=== PATIENT | female | born 1980 | race Hispanic/Latino ===

== ENCOUNTER 2017-04-25 19:00 | Inpatient (IN) | payer OTHER ==
[2017-04-25 20:22] VITALS: BMI 33.2
[2017-04-25 21:45] LABS: BASO # 0.1 K/uL (0.0-0.2); BASO % 0.6 % (0.0-2.0); EOS # 0.2 K/uL (0.0-0.7); EOS % 1.8 % (0.0-4.0); HEMATOCRIT 33.5 % (34.0-47.0); LYMPH % 21.9 % (20.0-40.0); MEAN CELL VOLUME 87.3 fl (81.0-99.0); MEAN CORPUSCULAR HEMOGLOBIN 28.7 pg (27.0-31.0); MEAN CORPUSCULAR HGB CONC 32.9 g/dL (33.0-37.0); MEAN PLATELET VOLUME 6.6 fl (7.2-11.7); MONO # 0.7 K/uL (0.0-0.8); MONO % 7.9 % (0.0-10.0); NEUT # 6.2 K/uL (1.8-7.0); NEUT % 67.8 % (50.0-75.0); RED CELL DISTRIBUTION WIDTH 14.5 % (11.5-14.5); WHITE BLOOD COUNT 9.2 K/uL (4.8-10.8)
[2017-04-25 21:58] VITALS: O2SAT 100
[2017-04-26] MEDS ORDERED: Lidocaine 1% Inj (20ml) ONE (09:43)
[2017-04-26] MEDS ORDERED: Lactated Ringer's 1,000 ML IV ONE ×2 (10:30→17:25)
--- NOTE | 2017-04-26 10:38 | OBPN ---
Datetime: 04/26/2017 10:33 IP Progress Impression: Normal progression of labor IP Informed Consent Obtain: Vaginal Delivery IP Procedures: Sterile Speculum Exam IP Progress Plan: Continue present management Contraction Comments Provider: q 4-5 mins FHR - Baseline A Provider: 140 Presentation-Admit: Vertex IP Progress Note Comment: Patient examined, uncomfortable. Cervidil removed VE=2-3/50/-2 [id number] mod alexa, +accels, no decels TOCO= ctxning q 4-5 mins A/P 1. Patient uncomfortable, now 2-3cm. WIll continue induction with Cytotec 2. Patient would like EPidural for pain 3. CEFM and TOCO Vital Signs Provider: Reviewed; Within Normal Limits NICHD Accel Fetus A IP Provider: [id number] NICHD Variability Prov Fetus A: Moderate 6-25bpm Dilatation, Provider: 2-3 Effacement, Provider: 50 Station, Provider: -2 NICHD Decel Fetus A IP Provider: None Datetime: 04/26/2017 01:29 Gestation - Est Wks by US: 40.0 FHR Category Provider Fetus A: Category I
[2017-04-26] MEDS ORDERED: Fentanyl/Bupivacaine HCl 250 ML EPI ONE (11:15)
[2017-04-26] MEDS ORDERED: Bupivacaine HCl 0.25% PF (10 ml) Inj ONE ×2 (11:16→17:36)
[2017-04-26] MEDS: Lactated Ringer's 1,000 ML IV SCH ×2 (13:00→18:55)
[2017-04-26] MEDS ORDERED: EPINEPHrine 1 mg/ml (1:1000) Inj ONE (16:55)
[2017-04-26] MEDS ORDERED: Lidocaine 2% PF (10 ml) Amp ONE ×2 (16:55→17:14)
[2017-04-26] MEDS ORDERED: ePHEDrine 50 mg/ml Inj ONE (17:52)
[2017-04-26] MEDS ORDERED: Oxytocin 30 units/LR 500ML 30 U/500 ML BAG IV ONE (20:00)
--- NOTE | 2017-04-26 21:33 | OBPN ---
Datetime: 04/26/2017 21:26 IP Progress Impression: Normal progression of labor IP Informed Consent Obtain: Vaginal Delivery IP Procedures: Sterile Vag Exam IP Progress Plan: Continue present management Membranes, Provider: Ruptured Contraction Comments Provider: q 3-4 mins FHR - Baseline A Provider: 125 IP Progress Note Comment: Patient feeling increased pressure VE=9/100/0 [id number] mod alexa, +early decelerations, +accels TOCO=ctxning q 3-4 mins A/P 1. Continue augmentation with Pitocin. Patient now 9cm dilated 2. CEFM and TOCO 3. Re-evaluate as needed Vital Signs Provider: Reviewed; Within Normal Limits NICHD Accel Fetus A IP Provider: [id number] NICHD Variability Prov Fetus A: Moderate 6-25bpm Dilatation, Provider: 9 Effacement, Provider: 100 Station, Provider: 0 NICHD Decel Fetus A IP Provider: Early
[2017-04-26] MEDS ORDERED: Benzocaine/Menthol SPRAY TOP PRN (23:46)
[2017-04-26] MEDS ORDERED: Oxytocin 30 units/LR 500ML 30 U/500 ML BAG IV SCH (23:46)
[2017-04-26] MEDS ORDERED: Oxycodone/Acetaminophen 5/325 mg Tab PO PRN ×2 (23:46)
--- NOTE | 2017-04-26 23:46 | OBDS ---
DELIVERY PERSONNEL Delivery Doctor: Balaji Wang MD Anesthesiologist: Africa Wiseman MD MATERNAL INFORMATION Delivery Anesthesia: Epidural Provider Comments: of live male infant in [place] presentation with nuchal cord loose, easily reduc ed, followed by rest of infant, 7lbs 1oz, 9/9 followed by shoulders and rest of infant, mouth and nos e suctioned, cord clamped and cut, cord blood obtained, placenta delivered spontaneously, fundus firm , first degree repaired with a 2-0 Vicry rapide, [id number], pt tolerated procedure well LABOR SUMMARY EDC: 04/23/2017 00:00 No. Babies in Womb: 1 Labor Anesthesia: Epidural LABOR INFORMATION Reason for Induction: Postterm Onset of Labor: 04/26/2017 17:15 Cervical Ripening Agents: Cervidil; Cytotec @ Oxytocin: N/A Group B Beta Strep: Negative BABY A INFORMATION Born in Route : No PRESENTATION/POSITION BABY A Presentation: Cephalic INFORMATION BABY A Gestational Age at Delivery: 40.3 Gestational Status: Term
[2017-04-27] MEDS ORDERED: Benzocaine/Menthol SPRAY TOP PRN (00:17)
[2017-04-27] MEDS ORDERED: Oxycodone/Acetaminophen 5/325 mg Tab PO PRN ×2 (00:17)
[2017-04-27] MEDS ORDERED: Multivitamin With Minerals Tab PO SCH (09:00)
[2017-04-27 09:14] LABS: HEMATOCRIT 35.9 % (34.0-47.0); MEAN CELL VOLUME 87.2 fl (81.0-99.0); MEAN CORPUSCULAR HEMOGLOBIN 28.6 pg (27.0-31.0); MEAN CORPUSCULAR HGB CONC 32.8 g/dL (33.0-37.0); RED CELL DISTRIBUTION WIDTH 14.7 % (11.5-14.5)
[2017-04-27] MEDS: Multivitamin With Minerals Tab PO SCH (09:20)
[2017-04-27 09:25] LABS: WHITE BLOOD COUNT 20.6 K/uL (4.8-10.8)
--- NOTE | 2017-04-27 09:25 | OBPPN ---
Datetime: 04/27/2017 09:22 PP Pain Prov: Within normal limits PP Abdomen/Uterus Prov: Normal PP Lochia Prov: Normal PP Extremities Prov: Normal PP Impression Prov: Normal progression PP Plan Prov: Continue present management PP Progress Note Prov: PPD 1 s/p , doing well, breast feeding Continue current management Vital Signs Provider PP: Reviewed
[2017-04-28] MEDS: Multivitamin With Minerals Tab PO SCH (08:46)
--- NOTE | 2017-04-28 10:14 | OBDCSUM ---
Datetime: 04/28/2017 10:12 Discharged to, Provider: Home Follow up at, Provider: OB Disch Instr Activity: Normal activity Disch Instr Diet: Regular Discharge Instructions, Provider: Routine instructions given Discharge Diagnosis, Provider: Term Delivered Discharge Time: 04/28/2017 10:12 Follow up in weeks, Provider: 6 wks Disch Referrals: None Contraception discussed, Prov: Yes
--- NOTE | 2017-04-28 10:14 | OBPPN ---
Datetime: 04/28/2017 10:11 PP Pain Prov: Within normal limits PP Nausea Prov: Denies PP Flatus Prov: Yes PP Breasts Prov: Normal PP Heart Prov: Normal PP Lungs Prov: Normal PP Abdomen/Uterus Prov: Normal PP Lochia Prov: Normal PP Vulva/Perineum Prov: Normal PP CVA Tenderness Prov: Normal PP Extremities Prov: Normal PP Comments Phys Exam Prov: Fundus firm under umbilicus PP Impression Prov: Normal progression PP Plan Prov: Continue present management PP Progress Note Prov: Patient denies CP, no SOB, no N/V, tolerating PO diet, ambulating/voiding wel l, mild lochia, abdominal pain tolerable with meds A/P PPD #2 1. discharge patient home 2. Discharge instructions reviewed IP PP Procedures: None Vital Signs Provider PP: Reviewed; Within Normal Limits
[2017-04-28 18:54] VITALS: BP 121/82; PULSE 81; RESP 20; TEMP 98.3
== END 2017-04-28 14:05 | disposition home or self-care (01) | DRG 775 ==
LOC: H.EROB2 19:00 → H.L&D 21:15 → H.OB/GYN 04-27 04:37
PROVIDERS: ADMIT Obstetrics & Gynecology; ATTEND Obstetrics & Gynecology
PROC: 0HQ9XZZ Repair Perineum Skin, External Approach (ICD-10-PCS; principal; 2017-04-25)
PROC: 10E0XZZ Delivery of Products of Conception, External Approach (ICD-10-PCS; 2017-04-25)
PROC: 4A1HXCZ Monitoring of Products of Conception, Cardiac Rate, External Approach (ICD-10-PCS; 2017-04-25)
DX: O69.81X0 Labor and delivery complicated by cord around neck, without compression, not applicable or unspecified (principal); O48.0 Post-term pregnancy; Z37.0 Single live birth; Z3A.40 40 weeks gestation of pregnancy; O70.0 First degree perineal laceration during delivery